=== PATIENT | female | born 1975 | race Two or more races ===

== ENCOUNTER 2019-10-30 17:41 | Emergency (ER) | payer OTHER ==
[~2019-10-30] VITALS: Ht 165.1 cm; Wt 91.0 kg
[2019-10-30] MEDS ORDERED: MORPHINE SULFATE 10 MG/ML VIAL. IV ONE (19:00)
[2019-10-30] MEDS ORDERED: DIPH,PERTUSS(ACELL),TET VAC/PF 0.5 ML SYRINGE. VAX IM ONE (19:00)
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
--- NOTE | 2019-10-30 20:09 | RAD ---
PROCEDURE: FOOT RIGHT 3V, SHOULDER 2+V RIGHT CLINICAL INDICATION / HISTORY: Right shoulder pain: . TECHNIQUE: AP internal and external rotation views with a Y- view were obtained. COMPARISON: None FINDINGS: No fracture, dislocation or bone destruction is identified. There are no degenerative changes at the right AC joint. No calcifications are seen in relation to the rotator cuff insertion. IMPRESSION: No acute osseous abnormality. PROCEDURE: FOOT RIGHT 3V, SHOULDER 2+V RIGHT CLINICAL INDICATION / HISTORY: Right foot pain. TECHNIQUE: AP, lateral and oblique views of the right foot. COMPARISON: None FINDINGS: No fracture or dislocation is identified. The bone density is normal. The joint space widths are maintained, and there are no erosions to suggest an inflammatory arthropathy. No soft tissue abnormality is seen. IMPRESSION: No acute osseous abnormality. Electronically signed by: Linda Viera MD (10/30/2019 8:06 PM) [facility] [place]
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
[2019-10-30] MEDS ORDERED: KETOROLAC 30 MG/ML VIAL. IVP ONE (21:30)
[2019-10-30 22:02] VITALS: BP 150/76
[2019-10-30] MEDS ORDERED: METH-38 PO (22:04)
[2019-10-30] MEDS ORDERED: KETO10TA PO (22:04)
== END 2019-10-30 22:17 | disposition home or self-care (01) ==
LOC: ER 17:41
DX: G89.11 Acute pain due to trauma (principal); M25.511 Pain in right shoulder; M54.2 Cervicalgia; R07.89 Other chest pain; M25.551 Pain in right hip; J45.909 Unspecified asthma, uncomplicated; Z98.890 Other specified postprocedural states; V89.2XXA Person injured in unspecified motor-vehicle accident, traffic, initial encounter; Y93.89 Activity, other specified; Y92.413 State road as the place of occurrence of the external cause; Y99.8 Other external cause status
CPT/HCPCS: 70450; 71250; 72125; 73030; 73630; 74176; 90471; 90715; 96374; 96375; 99285; J1885; J2270